=== PATIENT | female | born 1955 | race Caucasian/White ===

== ENCOUNTER 2024-02-18 11:46 | Outpatient (CLI) | payer MEDICARE, BC, OTHER, SELFPAY ==
--- NOTE | 2024-02-18 | ECHO_ITS ---
Patient Info Name: Anamika Mota Age: 69 years : 1955 Gender: Female Ht: 67 in Wt: 200 lbs BSA: 2.10 m2 HR: 84 bpm BP: 164 / 79 mmHg Heart Rhythm: Sinus Rhythm Technical Quality: Good Exam Date: 02/18/2024 12:36 PM Exam Location: Echo Lab Patient Status: Outpatient Admit Date: 02/18/2024 Staff Ordering Physician: ANMOL, RUFINO Shannon Podiatrist Orthopedic: Shonda Lowery RDCS Attending Provider: ANMOL, RUFINO Shannon Referring Physician: ROSY, ANMOL; Exam Type: CA echo doppler color flow Study Info Indications z95.2 - S/P TAVR Complete two-dimensional, color flow and Doppler transthoracic echocardiogram is performed. Strain analysis performed. Summary 1. Left ventricular chamber dimension is normal. 2. Left ventricular systolic function is normal, estimated at 65-70%. 3. There is mildly increased left ventricular wall thickness. 4. The left ventricular diastolic function is grade I diastolic dysfunction. 5. Right ventricular systolic function is normal. 6. Left atrial chamber dimension is mildly enlarged. 7. History of bioprosthetic aortic valve replacement. Bioprosthetic valve appears well-seated. Peak velocity is 1.91 m/s. Mean gradient of 8mmHg. 8. There is trace aortic valve regurgitation. 9. There is mild mitral valve regurgitation. 10. There is mild tricuspid valve regurgitation. Left Ventricle Left ventricular chamber dimension is normal. Left ventricular systolic function is normal, estimated at 65-70%. There is mildly increased left ventricular wall thickness. The left ventricular diastolic function is grade I diastolic dysfunction. Global longitudinal strain is abnormal at -13 %. Right Ventricle Right ventricular chamber dimension is normal. Right ventricular systolic function is normal. Left Atria Left atrial chamber dimension is mildly enlarged. Right Atria Right atrial chamber dimension is normal. Atrial Septum Intact interatrial septum visualized by color flow imaging. Aortic Valve History of bioprosthetic aortic valve replacement. Bioprosthetic valve appears well-seated. Peak velocity is 1.91 m/s. Mean gradient of 8mmHg. There is trace aortic valve regurgitation. Pulmonic Valve The pulmonic valve is not well visualized. There is no pulmonic regurgitation. Mitral Valve The mitral valve has thickened leaflets. There is mild mitral valve regurgitation. The mitral valve annulus is moderately calcified. Tricuspid Valve There is mild tricuspid valve regurgitation. Pericardium/Pleural The pericardium appears epicardial fat pad. There is no pericardial effusion. Inferior Vena Cava Normal inferior vena cava with >50% collapse upon inspiration consistent with normal right atrial pressure, 3 mmHg. Aorta The aortic root size at the sinus of Valsalva is normal. Left Ventricular Outflow Tract Name Value Normal LVOT 2D LVOT Diameter 2.0 cm LVOT Doppler LVOT Peak Gradient 4 mmHg LVOT Mean Gradient 3 mmHg LVOT VTI 26 cm LVOT VTI/AV VTI Ratio 0.6 LVOT Stroke Volume 85 ml LVOT CO 6.3 l/mi
== END 2024-02-18 11:47 | disposition home or self-care (01) ==
LOC: ANHCARD 11:46
DX: Z95.2 Presence of prosthetic heart valve (principal); I34.0 Nonrheumatic mitral (valve) insufficiency; I36.1 Nonrheumatic tricuspid (valve) insufficiency
CPT/HCPCS: 36415; 80053; 80061; 82043; 82306; 84439; 84443; 84445; 86376; 93306

== ENCOUNTER 2024-02-18 11:47 | Outpatient (CLI) | payer MEDICARE, BC, OTHER, SELFPAY ==
[2024-02-18 12:46] LABS: Alanine Aminotransferase 28 U/L (6-35); Albumin Level 3.9 g/dL (3.5-5.1); Alkaline Phosphatase 112 U/L (38-126); Anion Gap 8 mmol/L (4-12); Aspartate Amino Transferase 40 U/L (14-36); Bilirubin,Total 0.6 mg/dL (0.2-1.3); Blood Urea Nitrogen 12 mg/dL (7-17); Calcium 9.1 mg/dL (8.4-10.2); Carbon Dioxide 29 mmol/L (22-30); Chloride 100 mmol/L (98-107); Cholesterol 136 mg/dL (0-200); Estimated Glomerular Filt Rate > 60; Glucose 164 mg/dL (65-110); HDL Direct 54 mg/dL; Potassium 3.8 mmol/L (3.4-5.0); Sodium 137 mmol/L (137-145); Triglycerides 122 mg/dL (<150)
[2024-02-18 12:58] LABS: LDL Cholesterol Direct 60 mg/dL
[2024-02-18 13:07] LABS: Creatinine Urine 65.4 mg/dL
[2024-02-18 13:12] LABS: MALB Creatinine Ratio 11.2 mg/g (0-30); Microalbumin Urine Random 7.3 mg/L (0-16.7)
[2024-02-18 13:51] LABS: Free T4 Free Thyroxine 1.08 ng/mL (0.78-2.19); Vitamin D 25 Hydroxy 39.1 ng/mL
[2024-02-22 12:29] LABS: Thyroid Peroxidase Antibodies 2 IU/mL (<9)
[2024-02-26 17:22] LABS: Thyroid Stimulating Immunoglob <89 % baseline (<140)
== END 2024-02-18 11:48 | disposition home or self-care (01) ==
PROVIDERS: Visit Provider Internal Medicine
DX: E11.9 Type 2 diabetes mellitus without complications (principal); E78.5 Hyperlipidemia, unspecified; I10 Essential (primary) hypertension
CPT/HCPCS: 36415; 80053; 80061; 82043; 82306; 84439; 84443; 84445; 86376